=== PATIENT | female | born 1970 | race Caucasian/White ===

== ENCOUNTER → 2016-04-20 | Outpatient (CLI) | payer SELFPAY ==
--- NOTE | 2016-04-20 16:39 | DI ---
CT CHEST SCAN WITH IV CONTRAST, 04/20/2016 9:54 AM : Clinical History: Chest pain. Previous Exam: None at this facility. Scans are performed from the base of the neck to the level of the adrenal glands with contrast. 70 ml of Isovue 300 was injected IV. The base of the neck and thoracic inlet are normal. There are no abnormal axillary, supraclavicular, mediastinal, or hilar nodes. The heart is normal. Faint calcifications are visible in the proximal arellano lf of the LAD. The pulmonary arteries are normal and there is no evidence of pulmonary emboli or pulm onary embolism with infarction. There is no acute infiltrate or effusion.There are extensive bullae p resent in the upper lobes with multiple septations. Both upper lobes are hyperinflated and are causin g extrinsic compression of the lung parenchyma in the right middle lobe, the lingular segment, and artemio th lower lobes. Bullae are present in the remaining lung segments. Both adrenal glands, the spleen, a nd the visualized portions of the liver and pancreas are normal. READIN. There is no evidence of pulmonary embolism or pulmonary embolism with infarct. 2. Centrilobular emphysema with prominent amount of apical/upper lobe bullae. The bullae have produc ed hyperexpansion of the upper lobes with compression of the remaining portions of the lung.
== END ==
LOC: CT 09:48
PROVIDERS: ATTEND Family Medicine
DX: R07.9 Chest pain, unspecified (principal); J43.2 Centrilobular emphysema; F17.210 Nicotine dependence, cigarettes, uncomplicated
CPT/HCPCS: 71260